=== PATIENT | male | born 1955 | race African-American/Black ===

== ENCOUNTER 2016-10-31 20:20 | Inpatient (IN) | payer OTHER ==
--- NOTE | ~2016-10-31 | HP ---
History And Physical [place] [id number] [facility] [place]. [address] NAME: JAYNE GALLEGOS : 57 STATUS : ADM Mauricio PAT#: [id number] AGE: 61 ADM/REG DATE : 10/31/16 MR#: [id number] REPORT SERV DATE: 11/01/16 DICTATED BY: BANG BOYKIN DATE: 11/01/16 REPORT STATUS : Draft TRANSCRIBED BY: MODL DATE: 11/01/16 DATE OF ADMISSION: 10/31/2016 CHIEF COMPLAINT: This 61-year-old male presenting with abdominal pain, nose bleed, and vomiting. HISTORY OF PRESENT ILLNESS: The patient's history was obtained through careful interview with the patient, coupled with review of [facility] medical records. The patient has chronic pain, particularly in his abdomen, but over last "couple of days" it has progressed. He states in the last two days, he has had 12 episodes of vomiting. He has had some "profuse" nosebleeds on and off for a few days and this may or may not be related to hematemesis that he has also suffered in the last several days. He has also noticed some black stools and some slight diarrhea. There has been no recent antibiotic use. He describes epigastric abdominal discomfort that radiates into his right upper quadrant, aching, sore quality, 7/10 severity. He has chest discomfort, but he always associates it with abdominal pain and vomiting. No fevers or chills. He has had myalgias, aching, lightheadedness. No shortness of breath. No cough. REVIEW OF SYSTEMS: Otherwise, a 14-point review of systems was obtained and was negative. PAST MEDICAL HISTORY: 1. Hepatitis C with chronically elevated liver enzymes. No current treatment. 2. Diabetes. Hemoglobin A1c was 7.7, September 2016. 3. GI bleed with esophagitis seen by Dr. Farrar. 4. Bile leak post cholecystectomy. 5. Pancreatitis. 6. Gastroparesis with positive study in May 2016. 7. Hypertension. PAST SURGICAL HISTORY: Cholecystectomy in 2013 at [facility]. ALLERGIES: MORPHINE. SOCIAL HISTORY: Lives with his brother. He is retired from doing [employer] work. He has a child who lives locally and a child who lives in [place]. He smokes cigarettes. Does not use or drink any alcohol. When he was a young man, he had used some IV drugs and this may be the source of the patient's chronic hepatitis C. History And Physical [address] [place]. [address] NAME: JAYNE GALLEGOS : 57 STATUS : ADM Mauricio PAT#: [id number] AGE: 61 ADM/REG DATE : 10/31/16 MR#: [id number] REPORT SERV DATE: 11/01/16 DICTATED BY: BANG BOYKIN DATE: 11/01/16 REPORT STATUS : Draft TRANSCRIBED BY: DIO DATE: 11/01/16 FAMILY HISTORY: Mother with multiple sclerosis, sister with throat cancer, father unknown to him. CURRENT MEDICATIONS: Unknown at this time, but we have requested that pharmacy attempt to obtain the list for the patient's care. PHYSICAL EXAMINATION: VITAL SIGNS: Temperature 97.6, pulse 116, blood pressure 99/67, respiratory rate 20, and O2 sat 98% on room air. GENERAL: A pleasant, cooperative, male, he is in not any particular distress at the time of my evaluation. HEENT: Pupils are equal, round, and reactive to light. No conjunctival pallor. No scleral icterus. Nares are patent. Oropharynx is clear of obstruction. No intraoral lesions. Moist mucous membranes. NECK: Trachea midline. No thyromegaly. LYMPH NODES: No cervical lymphadenopathy. No supraclavicular lymphadenopathy. No inguinal lymphadenopathy. RESPIRATORY: Clear to auscultation at bases. No wheezes, rales, or rhonchi. Normal respiratory effort. CARDIOVASCULAR: Tachycardic. Regular rhythm. No murmurs, rubs, or gallops. No extremity edema is appreciated. ABDOMEN: Significant epigastric abdominal discomfort. No guarding. No rebound. No specific right upper quadrant tenderness, nondistended abdomen with active bowel sounds. No appreciable hepatosplenomegaly. DERMATOLOGICAL: Warm and dry extremities, no pallor, no cyanosis. PSYCHIATRIC: Normal affect. Good mood. Alert and oriented x3. LABORATORY DATA: Troponin 0.07, lipase 234, INR of 1.1. AST of 152, ALT 113, sodium 132, potassium 3.5, chloride 91, bicarb 29, BUN 24, creatinine 1.75 from baseline creatinine of 0.95, glucose 191, white blood count 8.8, hemoglobin 14, hematocrit 41, platelets 277. Urinalysis negative for infection, but shows 4 hyaline casts. STUDIES: 1. Chest x-ray by my own evaluation shows no acute cardiopulmonary process. 2. EKG by my own evaluation shows sinus tachycardia, right atrial abnormality, left ventricular hypertrophy. 3. CT scan of the abdomen without contrast shows no acute intraabdominal process. ASSESSMENT AND PLAN: 1. Acute kidney injury. Place on IV fluids. Monitor closely. No obstruction by CT scan of the abdomen. 2. Abdominal pain evaluation with vomiting. I believe this could be consistent with gastroparesis, and he did have a positive gastric emptying study in May 2016. We will start on IV Reglan and monitor the patient's response. 3. Hematemesis "chronic." Place on IV proton pump inhibitor drip for now, but it may be from epistaxis alone? We will consult Dr. Farrar, electronics processor, follow up History And Physical [address] [address] NAME: JAYNE GALLEGOS : 57 STATUS : ADM Mauricio PAT#: [id number] AGE: 61 ADM/REG DATE : 10/31/16 MR#: [id number] REPORT SERV DATE: 11/01/16 DICTATED BY: BANG BOYKIN DATE: 11/01/16 REPORT STATUS : Draft TRANSCRIBED BY: DIO DATE: 11/01/16 hemoglobin and hematocrit. 4. Hepatitis C cirrhosis. 5. Diabetes. Hemoglobin A1c is 7.7 in September 2016. Placed on sliding scale insulin for now and monitor .. KPL/MODL Bang Boykin M.D. / [id number] CC: Ihsan Farrar M.D.
--- NOTE | ~2016-10-31 | DS ---
Discharge Summary [facility] [address] [facility] [place]. [address] NAME: JAYNE GALLEGOS : 57 STATUS : DIS Mauricio PAT#: [id number] AGE: 61 ADM/REG DATE : 10/31/16 MR#: [id number] REPORT SERV DATE: 11/03/16 DICTATED BY: JR. DAMIAN WILLIAM JOHN DATE: 11/02/16 REPORT STATUS : Draft TRANSCRIBED BY: DIO DATE: 11/02/16 ADMISSION DATE: 10/31/2016 DISCHARGE DATE: 11/02/2016 DISCHARGE DIAGNOSES: Include: 1. Gastritis. 2. Diminutive esophageal varices. 3. Acute kidney injury. 4. Abdominal pain. 5. Acute on chronic nausea and vomiting. 6. Hematemesis. 7. History of hepatitis C virus. 8. Cirrhosis. 9. Diabetes mellitus type 2. 10.Hypokalemia. 11.Elevated troponin. OPERATIONS, PROCEDURES, AND TREATMENTS: Include: 1. Abdominal CT done 10/31/2016, which showed no acute abdominal pathology with moderately severe degenerative disc disease at L5 through S1 status post cholecystectomy. 2. Chest x-ray done 10/31/2016, which showed no acute abnormality. 3. Echocardiogram done 11/01/2016, which showed normal left ventricular systolic function with ejection fraction of 55% to 60% with mild diastolic dysfunction. Normal right ventricular and systolic size and function. 4. Upper endoscopy done 11/02/[address] Farrar, which showed diminutive esophageal varices with erythematous proximal gastritis. DISCHARGE MEDICATIONS: Include: 1. Levemir insulin 30 units in the morning. 2. Reglan 5 mg t.i.d. p.r.n. 3. Lipitor 20 mg orally daily. 4. Norvasc 10 mg orally daily. 5. Protonix 40 mg orally daily. 6. Percocet 5/325 one tablet every six hours p.r.n., dispensing 8. HOSPITAL COURSE: The patient was a 61-year-old male, who presented to the emergency room on 10/31/2016, with complaint of abdominal plain, nose bleeds, and vomiting. The patient has chronic pain particularly in the abdomen but it had been worse over the past few days. He had multiple episodes of vomiting with some blood and black colored stools. For complete details of the patient's admission history, physical, and presenting data, please see Dr. Carbajal's dictated history and physical. The patient was admitted to the Clinical Decision Unit with acute kidney injury. Initial BUN and creatinine were 24 and 1.8. The patient was IV fluid hydrated, and at discharge, his BUN and creatinine were 16 and 1.05. Discharge Summary [place] [address] [facility]. [address] NAME: JAYNE GALLEGOS : 57 STATUS : DIS Mauricio PAT#: [id number] AGE: 61 ADM/REG DATE : 10/31/16 MR#: [id number] REPORT SERV DATE: 11/03/16 DICTATED BY: JR. DAMIAN WILLIAM JOHN DATE: 11/02/16 REPORT STATUS : Draft TRANSCRIBED BY: DIO DATE: 11/02/16 Regarding the patient's abdominal pain, nausea, vomiting, and hematemesis, the patient has chronic pain since some sort of a surgery in the past with bile leak. He gets pain medicines through his primary care physician, Nel Sancehz. The patient had serial hemoglobin monitoring. His hemoglobin was stable. He was seen in consultation by Dr. Farrar of Gastroenterology and underwent an upper endoscopy with findings of gastritis and diminutive esophageal varices. He will be placed on proton pump inhibitor. Regarding the elevated troponin, the patient had elevated troponin at 0.07. Followup troponins were 0.03 and 0.03. He had no symptoms to indicate acute coronary syndrome and no further workup was done except an echocardiogram, which is detailed above. Regarding the patient's hypokalemia, this was replaced. The patient will be discharged home today 11/02/2016 in good condition. He will be on a soft diet. He will follow up with primary care physician, Nel Sanchez. ACTIVITY: As tolerated. This discharge took 33 minutes for patient encounter, coordination of care, and documentation. WERIKA/DIO Aryan Damian Jr, MD / [id number] CC: Aryan Damian Jr, MD Maureen W Brock, N.PMerline
--- NOTE | ~2016-10-31 | OP ---
Record Of Operation [facility] [address] [address] NAME: JAYNE GALLEGOS : 57 STATUS : ADM Mauricio PAT#: [id number] AGE: 61 ADM/REG DATE : 10/31/16 MR#: [id number] REPORT SERV DATE: 11/02/16 DICTATED BY: MICKEY JULIO DATE: 11/02/16 REPORT STATUS : Draft TRANSCRIBED BY: MODL DATE: 11/02/16 DATE OF PROCEDURE: 11/02/2016 LOCATION: CDU bed 14. PREOPERATIVE DIAGNOSIS: Hematemesis. PROCEDURE: Panendoscopy. POSTOPERATIVE DIAGNOSIS: Proximal gastritis. PREMEDICATION: Diprivan. PROCEDURE IN DETAIL: The scope was inserted without difficulty. There are diminutive esophageal varices at the GE junction with no stigmata of hemorrhage. Retroflexed view shows moderate erythematous proximal gastritis. The stomach, duodenal bulb, and descending duodenum appear normal. There was no active bleeding or old blood present. IMPRESSION: Hematemesis, almost certainly secondary to the gastritis. KIMBERLY Mickey Julio M.D. / [id number] CC: Aryan Damian Jr, MD
--- NOTE | ~2016-10-31 | CN ---
Consultation Report [facility] [address] [place]. [address] NAME: JAYNE GALLEGOS : 57 STATUS : ADM Mauricio PAT#: [id number] AGE: 61 ADM/REG DATE : 10/31/16 MR#: [id number] REPORT SERV DATE: 11/02/16 DICTATED BY: MICKEY JULIO DATE: 11/02/16 REPORT STATUS : Draft TRANSCRIBED BY: MODL DATE: 11/02/16 CONSULTATION DATE OF CONSULTATION: 11/01/2016 LOCATION: U bed 14. I am asked to see this gentleman with hematemesis. This 61-year-old gentleman is known to me. He has several medical problems including hepatitis C and renal failure. Recent complaints have included mild nausea, with hematemesis on one occasion. He denied melena or severe abdominal pain. He denies dysphagia. REVIEW OF SYSTEMS: Otherwise, unremarkable. LISTED MEDICATIONS: Insulin, Reglan, Apresoline, Percocet, and Protonix. PHYSICAL EXAMINATION: HEAD, EYES, EARS, NOSE, THROAT: Normal. NECK: Supple. CHEST: Clear. CARDIAC: Regular rhythm. ABDOMEN: Soft and nontender. Bowel sounds normal. No palpable mass. LABORATORY DATA: Lab work has shown hemoglobin of 12 with normal platelet count and normal BUN and creatinine. IMPRESSION: Hematemesis. PLAN: We will schedule for panendoscopy. Thank you for allowing me to see this gentleman. BRUNO/DIO Mickey Julio M.D. / [id number] Consultation Report [place] [address] [place]. [address] NAME: ROSYJAYNEHARPER CLEMENTS : 57 STATUS : ADM Mauricio PAT#: [id number] AGE: 61 ADM/REG DATE : 10/31/16 MR#: [id number] REPORT SERV DATE: 11/02/16 DICTATED BY: MICKEY JULIO DATE: 11/02/16 REPORT STATUS : Draft TRANSCRIBED BY: MODL DATE: 11/02/16 CC: Aryan Damian Jr, MD
[2016-10-31 16:44] LABS: BASOPHILS 0.3 %; BASOPHILS ABSOLUTE 0.03 10/3/uL (0.0-0.16); EOSINOPHILS 0.2 %; EOSINOPHILS ABSOLUTE 0.02 10/3/uL (0.0-0.53); IMMATURE GRANULOCYTES 0.3 %; IMMATURE GRANULOCYTES ABSOLUTE 0.03 10/3/uL (0.0-0.11); LYMPHOCYTES 44.7 %; LYMPHOCYTES ABSOLUTE 3.94 10/3/uL (0.67-4.30); MEAN CORPUS HGB CONC 34.6 g/dL (32.0-36.0); MEAN CORPUSCULAR HEMOGLOB 28.4 pg (26.0-34.0); MEAN PLATELET VOLUME 9.8 fL (9.2-13.0); MONOCYTES 10.5 %; MONOCYTES ABSOLUTE 0.93 10/3/uL (0.21-1.20); NEUTROPHILS ABSOLUTE 3.87 10/3/uL (2.02-8.40); RBC DISTRIBUTION WIDTH 13.6 % (12.0-16.0)
[2016-10-31 16:45] LABS: ER CBC TAT 0 Hrs 13 Mins; HEMATOCRIT 41.3 % (40.0-51.0); HEMOGLOBIN 14.3 g/dL (13.6-17.8); MANUAL DIFF NO %; MEAN CORPUSCULAR VOLUME 82.1 fL (80-100); PLATELET COUNT 277 10/3/uL (150-400); RED CELL COUNT 5.03 10/6/uL (4.7-6.1); WHITE BLOOD CELLS 8.8 10/3/uL (4.5-10.5)
[2016-10-31 16:49] LABS: ASCORBIC ACID (UR NOT ORDER) NEG (NEG); BILIRUBIN, URINE NEGATIVE (NEG); KETONE, URINE NEGATIVE (NEG); LEUKOCYTE ESTERASE(NOT OR NEG (NEG); NITRITE (URINE) NEG (NEG); WBC (NOT ORDERED) (RFLEX) 2 (0-5)
[2016-10-31 16:53] LABS: ALBUMIN 3.8 G/DL (3.5-5.0); CO2 (CARBON DIOXIDE) 29 MMOL/L (24-34); DIRECT BILIRUBIN 0.5 MG/DL (0.0-0.4); INDIRECT BILIRUBIN(NOT ORDER) 0.6 MG/DL (0.1-0.9); POTASSIUM, SERUM 3.5 MMOL/L (3.5-5.3); SGOT(AST) 152 U/L (5-40); SGPT(ALT) 113 U/L (5-65); TOTAL BILIRUBIN 1.1 MG/DL (0-1.2)
[2016-10-31 16:54] LABS: ALKALINE PHOSPHATASE 115 U/L (45-117); BUN (BLOOD UREA NITROGEN) 24 MG/DL (6-23); CHEST PAIN PROFILE TAT 0 Hrs 22 Mins; CHLORIDE, SERUM 91 MMOL/L (96-112); CREATININE 1.74 MG/DL (0.70-1.30); GFR AFRICAN AMERICAN 48 ML/MIN (>=60); GFR NON AFRICAN AMERICAN 42 ML/MIN (>=60); GLUCOSE, SERUM 191 MG/DL (60-99); SODIUM, SERUM 132 MMOL/L (135-148); TOTAL PROTEIN 8.6 G/DL (6.0-8.5); TROPONIN I 0.07 NG/ML (<0.05)
[2016-10-31 16:56] LABS: INTERNATIONAL NORMAL RATI 1.1 UNITS (-); PARTIAL THROMBO TIME 33.2 SEC (22.5-37.2)
[~2016-10-31 20:20] MED LIST: COZ50 PO; FERROUS SULF325 M1 PO; LEVEMIR SC; NORCO1 TA1 PO; NORV10 PO; PCET PO; REG5 PO; ULTRAM50 PO; ZOFRAN4 PO
[2016-10-31] MEDS ORDERED: LEVEMIR SC (22:59)
[2016-10-31] MEDS ORDERED: LIPITOR20 PO (23:07)
[2016-10-31] MEDS ORDERED: NORV10 PO (23:07)
[2016-10-31] MEDS ORDERED: REG5 PO (23:08)
[2016-11-01 04:43] LABS: HEMOGLOBIN 11.5 g/dL (13.6-17.8); MEAN CORPUS HGB CONC 33.9 g/dL (32.0-36.0); MEAN CORPUSCULAR HEMOGLOB 27.9 pg (26.0-34.0); MEAN CORPUSCULAR VOLUME 82.3 fL (80-100); MEAN PLATELET VOLUME 9.3 fL (9.2-13.0); PLATELET COUNT 202 10/3/uL (150-400); RBC DISTRIBUTION WIDTH 13.7 % (12.0-16.0); RED CELL COUNT 4.12 10/6/uL (4.7-6.1); WHITE BLOOD CELLS 9.5 10/3/uL (4.5-10.5)
[2016-11-01 04:45] LABS: HEMATOCRIT 33.9 % (40.0-51.0); MANUAL DIFF YES %
[2016-11-01 04:45] LABS: A/G RATIO 0.8 (0.7-1.9); ALBUMIN 3.2 G/DL (3.5-5.0); CALCIUM, SERUM 8.4 MG/DL (8.5-10.4); CHLORIDE, SERUM 98 MMOL/L (96-112); CO2 (CARBON DIOXIDE) 27 MMOL/L (24-34); CREATININE 1.79 MG/DL (0.70-1.30); GFR AFRICAN AMERICAN 47 ML/MIN (>=60); GFR NON AFRICAN AMERICAN 40 ML/MIN (>=60); POTASSIUM, SERUM 3.2 MMOL/L (3.5-5.3); SGOT(AST) 134 U/L (5-40); SGPT(ALT) 97 U/L (5-65); SODIUM, SERUM 136 MMOL/L (135-148); TOTAL BILIRUBIN 1.4 MG/DL (0-1.2); TOTAL PROTEIN 7.2 G/DL (6.0-8.5); ULTRASENSITIVE TSH 0.862 MCIU/ML (0.358-3.740)
[2016-11-01 04:52] LABS: ALKALINE PHOSPHATASE 96 U/L (45-117); BUN (BLOOD UREA NITROGEN) 28 MG/DL (6-23); GLUCOSE, SERUM 143 MG/DL (60-99); TROPONIN I 0.08 NG/ML (<0.05)
[2016-11-01 05:01] LABS: BASOPHILS 2 %; BASOPHILS ABSOLUTE (CALC) 0.19 10/3/uL (0.0-0.16); EOSINOPHILS 2 %; EOSINOPHILS ABSOLUTE (CALC) 0.19 10/3/uL (0.0-0.53); LYMPHOCYTES 48 %; LYMPHOCYTES ABSOLUTE (CALC) 4.56 10/3/uL (0.67-4.30); MONOCYTES 8 %; MONOCYTES ABSOLUTE (CALC) 0.76 10/3/uL (0.21-1.20); SEGMENTED NEUTROPHIL (0) 40 %; TOTAL NUCLEATED CELLS 100
[2016-11-01 05:02] LABS: PLATELET ESTIMATE ADQ (ADEQUATE); VACUOLATED NEUTROPHILES OCC
[2016-11-01 05:03] LABS: HELMET CELLS FEW (3-10/OIF)
[2016-11-01 06:48] LABS: INTERNATIONAL NORMAL RATI 1.1 UNITS (-); PARTIAL THROMBO TIME 23.9 SEC (22.5-37.2)
[2016-11-01 12:52] LABS: HEMATOCRIT 32.3 % (40.0-51.0); HEMOGLOBIN 11.2 g/dL (13.6-17.8)
[2016-11-01 22:22] LABS: HEMATOCRIT 30.1 % (40.0-51.0); HEMOGLOBIN 10.3 g/dL (13.6-17.8)
[2016-11-02 05:22] LABS: HEMATOCRIT 29.3 % (40.0-51.0); HEMOGLOBIN 9.8 g/dL (13.6-17.8)
[2016-11-02 05:57] LABS: CALCIUM, SERUM 7.9 MG/DL (8.5-10.4); CHLORIDE, SERUM 108 MMOL/L (96-112); CO2 (CARBON DIOXIDE) 26 MMOL/L (24-34); GFR AFRICAN AMERICAN 89 ML/MIN (>=60); GFR NON AFRICAN AMERICAN 77 ML/MIN (>=60); GLUCOSE, SERUM 136 MG/DL (60-99)
[2016-11-02 06:14] LABS: BUN (BLOOD UREA NITROGEN) 16 MG/DL (6-23); CREATININE 1.05 MG/DL (0.70-1.30); SODIUM, SERUM 143 MMOL/L (135-148)
[2016-11-02] MEDS ORDERED: PROTONIX PO (15:25)
[2016-11-02] MEDS ORDERED: PCET PO (15:25)
[2017-05-08] MEDS ORDERED: PR25 PO (10:01)
[2017-05-08] MEDS ORDERED: LEVEMIR SC (10:02)
[2017-05-08] MEDS ORDERED: ULTRAM50 PO (10:02)
[2017-05-12] MEDS ORDERED: NORV5 PO (09:26)
[2017-05-12] MEDS ORDERED: COREG12 PO (09:27)
[2017-05-12] MEDS ORDERED: PROTONIX PO (09:29)
[2017-05-12] MEDS ORDERED: NORCO1 TA1 PO (09:30)
== END 2016-11-02 17:24 | disposition home or self-care (01) | DRG 378 ==
LOC: ER 20:20 → CDU1 22:06 → 7NO 11-01 20:58
PROVIDERS: Emergency Medicine; Internal Medicine; Internal Medicine Gastroenterology
PROC: 0DJ08ZZ Inspection of Upper Intestinal Tract, Via Natural or Artificial Opening Endoscopic (ICD-10-PCS; principal; 2016-11-02 09:00)
DX: K92.0 Hematemesis (principal); N17.9 Acute kidney failure, unspecified; K74.60 Unspecified cirrhosis of liver; K29.70 Gastritis, unspecified, without bleeding; I85.10 Secondary esophageal varices without bleeding; B18.2 Chronic viral hepatitis C; E11.9 Type 2 diabetes mellitus without complications; E87.6 Hypokalemia; M51.37 Other intervertebral disc degeneration, lumbosacral region; Z90.49 Acquired absence of other specified parts of digestive tract; Z79.4 Long term (current) use of insulin
CPT/HCPCS: 71020; 74160; 80048; 80053; 80076; 81001; 82962; 83605; 83690; 83735; 83880; 84443; 84484; 85014; 85018; 85025; 85610; 85730; 93005; 93306; 96361; 96374; 96375; 99291; A9270-GY; C9113; J0360; J1170; J2405; J2550; J2765; Q9967

== ENCOUNTER 2016-11-29 20:44 | Inpatient (IN) | payer OTHER ==
--- NOTE | ~2016-11-29 | CN ---
Consultation Report [facility] [address] [place]. [address] NAME: JAYNE GALLEGOS : 57 STATUS : ADM Mauricio PAT#: [id number] AGE: 61 ADM/REG DATE : 11/29/16 MR#: [id number] REPORT SERV DATE: 12/01/16 DICTATED BY: MICKEY JULIO DATE: 12/01/16 REPORT STATUS : Draft TRANSCRIBED BY: DIO DATE: 12/01/16 CONSULTATION DATE OF CONSULTATION: 12/01/2016 I am asked to see this gentleman with upper GI symptoms. HISTORY OF PRESENT ILLNESS: This 61-year-old gentleman is known to me. Dominant medical problem is diabetes. He has had intermittent difficulty with nausea, vomiting, and abdominal pain over the last year or so. Workup has been extensive including endoscopy. Recently, he developed hematemesis, panendoscopy within the last week or two was unremarkable. Currently, pain seems to be diminished. He is increasing his hunger. He denies melena. REVIEW OF SYSTEMS: Otherwise negative. PHYSICAL EXAMINATION: CHEST: Clear. CARDIAC: Regular rhythm. ABDOMEN: Soft and nontender. Bowel sounds normal. No palpable mass. IMPRESSION: 1. Nausea, vomiting, and epigastric pain. 2. Hematemesis, not hemodynamically significant. PLAN: We will follow with you. Panendoscopy is probably not necessary at this point. BRUNO/DIO Mickey Julio M.D. / [id number] CC: Hemant Mireles MD
--- NOTE | ~2016-11-29 | HP ---
History And Physical [place] [address] [facility] [place]. [address] NAME: JAYNE ALVA : 57 STATUS : ADM Mauricio PAT#: [id number] AGE: 61 ADM/REG DATE : 11/29/16 MR#: [id number] REPORT SERV DATE: 11/29/16 DICTATED BY: AIDE ROBLEDO DATE: 11/29/16 REPORT STATUS : Draft TRANSCRIBED BY: MODL DATE: 11/29/16 DATE OF ADMISSION: 11/29/2016 POINT OF ENTRY: [facility] Emergency Department. PRIMARY FIREBRICK LAYER: Dr. Farrar. CHIEF COMPLAINT: Abdominal pain, nausea, vomiting, and hematemesis. HISTORY OF PRESENT ILLNESS: Mr. Alva is a 61-year-old gentleman with history of chronic abdominal pain, on chronic narcotics as well as hepatitis C with concern for cirrhosis and esophageal varices, who presents to the emergency department today with two-day history of diffuse abdominal pain with associated nausea and vomiting as well as blood in his vomit. The patient has been admitted to the Hospitalist Service, both in September as well as in October for similar complaints of abdominal pain, nausea, vomiting, and hematemesis. He has undergone panendoscopy by Dr. Farrar on both occasions with finding of esophagitis in September as well as gastritis in October. EGD has also demonstrated some very small- appearing esophageal varices at that time, but without any evidence of recent or active bleeding. The patient was discharged on Protonix, Reglan as well as some pain medications. The patient states he has been out of his pain medications for the past week. Being about two days ago, he started to develop diffuse abdominal pain with associated nausea, vomiting as well as blood in his vomit. He denies any other symptoms such as fevers, night sweats, chills, chest pain, shortness of breath, diarrhea, constipation, dysuria, melena, or hematochezia. REVIEW OF SYSTEMS: Comprehensive review of system otherwise negative unless listed in history of present illness. Initial evaluation in the emergency department notable for blood pressure that is very high with systolic of 200/100. His lactic acid level was elevated at 3.5; however, his white count is normal. His H and H are also within recent baseline. Labs otherwise unremarkable, except for some chronic transaminitis, which is at baseline as well as some hyperglycemia. The patient was started on a Protonix drip as well as some IV fluids and admitted to the hospitalist service for further evaluation and management. PREVIOUS MEDICAL HISTORY: 1. Chronic abdominal pain, on chronic narcotics. 2. Chronic hepatitis C with associated esophageal varices. 3. Insulin-dependent diabetes mellitus type 2. 4. Hypertension. 5. Prior admissions for hematemesis and found to have evidence of gastritis and esophagitis. 6. Gastroparesis. History And Physical [address] [address] NAME: JAYNE ALVA : 57 STATUS : ADM Mauricio PAT#: [id number] AGE: 61 ADM/REG DATE : 11/29/16 MR#: [id number] REPORT SERV DATE: 11/29/16 DICTATED BY: AIDE ROBLEDO DATE: 11/29/16 REPORT STATUS : Draft TRANSCRIBED BY: DIO DATE: 11/29/16 7. Prior history of pancreatitis. SURGICAL HISTORY: Cholecystectomy. ALLERGIES: MORPHINE. HOME MEDICATIONS: 1. Norvasc 10 mg daily. 2. Atorvastatin 20 mg q.h.s. 3. Stafford 5-325 one to two tablets q.4 hours p.r.n. 4. Insulin Levemir 30 units q.a.m. 5. Reglan 5 mg t.i.d. p.r.n. 6. Tramadol 50 mg b.i.d. SOCIAL HISTORY: He does still smoke cigarettes. Denies any alcohol. Denies illicits. FAMILY MEDICAL HISTORY: Mother with multiple sclerosis. Father's history is unknown. Sibling with history of throat cancer. LABORATORIES AND IMAGIN. White count is 5.5, hemoglobin is 12.2, hematocrit is 35.9, platelet count is 200. INR is pending. 2. Sodium is 137, potassium 3.1, chloride 96, carbon dioxide 25, BUN 6, creatinine 1.16, glucose is 269, calcium is 9.2, protein is 8.4, albumin is 2.8, bilirubin is 1.7, ALT is 94, AST 98, alkaline phosphatase is 182. 3. Lipase is 162. 4. Lactic acid is 3.5. 5. Urinalysis: Specific gravity is 1.032, positive for protein, but no evidence of any infection, no evidence of any ketones on his urinalysis. PHYSICAL EXAMINATION: VITAL SIGNS: Temperature is 98.6 degrees Fahrenheit, pulse is 109, respirations 16, saturating 100% on room air, blood pressure is 155/101; on recheck it is now 190/101. GENERAL: The patient is awake, alert. He is a well-developed, well-nourished, - Somali male in some visible distress when I walk in the room, however, not visualized or documented by nursing. HEENT: Atraumatic and normocephalic. Moist mucous membranes. Pupils are equal, round, reactive to light and accommodation. Extraocular movements intact. No scleral icterus. NECK: No jugular venous distention. No carotid bruits. CARDIAC: Regular rate and rhythm. No murmurs or gallops. Normal S1 and S2. LUNGS: Clear to auscultation bilaterally. No wheezes, rhonchi, or crackles. ABDOMEN: Soft. Diffusely tender to palpation in all quadrants. No rebound, guarding, or rigidity. EXTREMITIES: Warm and well perfused. No cyanosis, clubbing, or edema. SKIN: Warm and dry. PSYCH: Affect appropriate. NEURO: Alert and oriented x3. Cranial nerves II through XII grossly intact. Speech is History And Physical [address] [address] NAME: JAYNE ALVA : 57 STATUS : ADM Mauricio PAT#: [id number] AGE: 61 ADM/REG DATE : 11/29/16 MR#: [id number] REPORT SERV DATE: 11/29/16 DICTATED BY: AIDE ROBLEDO DATE: 11/29/16 REPORT STATUS : Draft TRANSCRIBED BY: MODPrimitivo DATE: 11/29/16 normal. Gait not assessed. ASSESSMENT: Mr. Alva is a 61-year-old gentleman with two recent admissions in the last two months for nausea, vomiting, and hematemesis with endoscopic evaluation, found to have gastritis and esophagitis as well as nonbleeding esophageal varices, who presents with similar symptoms and complaints. PROBLEM LIST: 1. Hematemesis. 2. Hypertensive urgency. 3. Abdominal pain. 4. Elevated lactic acid level. 5. History of gastritis and esophagitis. 6. History of esophageal varices. 7. Insulin-dependent diabetes mellitus type 2 with hyperglycemia. PLAN: 1. Hematemesis. Given the patient's previous admissions as well as evidence of gastritis, esophagitis as well as esophageal varices, we will place the patient on Protonix drip as well as an octreotide drip. Check hemoglobin and hematocrit q.6 hours x24 hours. We will consult the patient's primary purchasing supervisor, Dr. Farrar for assistance. 2. Hypertensive urgency, likely secondary to medication noncompliance as well as distress from his report of abdominal pain, nausea, and vomiting. Place the patient on hydralazine IV p.r.n. as well as some low-dose for pain control. 3. Abdominal pain with elevated lactic acid level. Unclear etiology at this time. The patient does appear to have some chronic liver disease from his chronic hepatitis C and chronic transaminase elevation, but did not have an elevation last time he was admitted. I do not appreciate any active evidence of infection at this time; however, we will check a stat CT scan of the abdomen and pelvis given the patient's abdominal pain and lactic acid level. 4. Insulin-dependent diabetes mellitus type 2 with hyperglycemia. Continue the patient's home Levemir, level 2 insulin sliding scale. 5. History of esophageal varices. There has been no recent document evidence of active or recent stigmata bleeding from his varices, but we will place the patient on octreotide drip as well as a Protonix drip. 6. DVT prophylaxis. TEDs and SCDs given bleeding. CODE STATUS: The patient wished to be full code. TANYA/DIO Aide Robledo MD / [id number] History And Physical [address] [address] NAME: JAYNE ALVA : 57 STATUS : ADM Mauricio PAT#: [id number] AGE: 61 ADM/REG DATE : 11/29/16 MR#: [id number] REPORT SERV DATE: 11/29/16 DICTATED BY: AIDE ROBLEDO DATE: 11/29/16 REPORT STATUS : Draft TRANSCRIBED BY: DIO DATE: 11/29/16 CC: Nel Sanchez N.P.
--- NOTE | ~2016-11-29 | DS ---
Discharge Summary [place] [address] [place]. [address] NAME: JAYNE GALLEGOS : 57 STATUS : DIS IN PAT#: [id number] AGE: 61 ADM/REG DATE : 11/29/16 MR#: [id number] REPORT SERV DATE: 12/04/16 DICTATED BY: DATE: REPORT STATUS : Draft TRANSCRIBED BY: MODL DATE: 12/03/16 ADMISSION DATE: 11/29/2016 DISCHARGE DATE: 12/03/2016 DISCHARGE DIAGNOSES: 1. Hematemesis. 2. Hypertension. 3. History of esophageal varices. 4. Insulin-dependent diabetes mellitus. 5. Chronic hepatitis C. 6. Abdominal pain. 7. Constipation. CONSULTING PHYSICIANS: Include Dr. Ihsan Farrar. DISCHARGE MEDICATIONS: Include Norvasc 10 mg p.o. daily, Lipitor 20 mg p.o. at bedtime, Levemir 30 units subcu daily, Reglan 5 mg p.o. t.i.d. p.r.n. for nausea, Lindsay 5/325 mg one to two tablets p.o. q.4 hours p.r.n. for pain, tramadol 50 mg p.o. b.i.d. p.r.n. for pain, Protonix 40 mg p.o. daily. IMAGING: Includes CT of the abdomen and pelvis without contrast. This demonstrated no acute abdominal or pelvic pathology. For full H and P, please refer to Dr. Aoln Sams's dictation on 11/29/2016. HOSPITAL COURSE/PROBLEM LIST: 1. Hematemesis. The patient was initially placed on a Protonix drip as well as a Sandostatin drip for several days. His hematemesis resolved on his own without endoscopy. His hemoglobin and hematocrit have remained stable, the last being 9.8 and 29.5 this morning. The Sandostatin and Protonix drips were discontinued several days ago. Continue Protonix IV 40 mg b.i.d., and I will discharge the patient with 40 mg p.o. daily. The patient is established with Dr. Farrar as an outpatient, and he will follow up with him as needed. 2. Hypertension. The patient's blood pressure has remained in the 130s to 140s systolic in the last 24 hours. I will continue his home antihypertensives as mentioned above. 3. Insulin-dependent diabetes mellitus. We will continue the patient's Levemir. The patient's blood glucose has been 150 to 200 during his hospital stay. 4. Abdominal pain, this has resolved. 5. Constipation. The patient has not had a bowel movement in four days. Today, he received MiraLAX p.o. as well as a Dulcolax suppository. He did have a bowel movement and is feeling much better. He is requesting to go home. He is hemodynamically stable. Blood pressure 134/79, heart rate 89, respirations 18, on room air O2 saturation 99%, temperature 97.4. The patient has been afebrile. Again, he will follow up with Dr. Farrar for further GI issues. Discharge Summary [address] [address] NAME: JAYNE GALLEGOS : 57 STATUS : DIS IN PAT#: [id number] AGE: 61 ADM/REG DATE : 11/29/16 MR#: [id number] REPORT SERV DATE: 12/04/16 DICTATED BY: DATE: REPORT STATUS : Draft TRANSCRIBED BY: DIO DATE: 12/03/16 CLR/DIO Ced Patiño NP / [id number] CC: MD Ihsan Dinh M.D.
[2016-11-29 17:57] LABS: BASOPHILS 0.7 %; BASOPHILS ABSOLUTE 0.04 10/3/uL (0.0-0.16); EOSINOPHILS 0.7 %; EOSINOPHILS ABSOLUTE 0.04 10/3/uL (0.0-0.53); IMMATURE GRANULOCYTES 0.2 %; IMMATURE GRANULOCYTES ABSOLUTE 0.01 10/3/uL (0.0-0.11); LYMPHOCYTES 41.2 %; LYMPHOCYTES ABSOLUTE 2.26 10/3/uL (0.67-4.30); MEAN CORPUSCULAR HEMOGLOB 27.7 pg (26.0-34.0); MEAN CORPUSCULAR VOLUME 81.4 fL (80-100); MEAN PLATELET VOLUME 10.1 fL (9.2-13.0); MONOCYTES 8.4 %; MONOCYTES ABSOLUTE 0.46 10/3/uL (0.21-1.20); NEUTROPHILS 48.8 %; NEUTROPHILS ABSOLUTE 2.68 10/3/uL (2.02-8.40); PLATELET COUNT 200 10/3/uL (150-400); RBC DISTRIBUTION WIDTH 14.5 % (12.0-16.0); RED CELL COUNT 4.41 10/6/uL (4.7-6.1)
[2016-11-29 18:00] LABS: ER CBC TAT 0 Hrs 16 Mins; HEMATOCRIT 35.9 % (40.0-51.0); HEMOGLOBIN 12.2 g/dL (13.6-17.8); MANUAL DIFF NO %; WHITE BLOOD CELLS 5.5 10/3/uL (4.5-10.5)
[2016-11-29 18:07] LABS: ASCORBIC ACID (UR NOT ORDER) NEG (NEG); BILIRUBIN, URINE NEGATIVE (NEG); ER URINALYSIS TAT 0 Hrs 23 Mins; KETONE, URINE NEGATIVE (NEG); LEUKOCYTE ESTERASE(NOT OR NEG (NEG); NITRITE (URINE) NEG (NEG); WBC (NOT ORDERED) (RFLEX) < 1 (0-5)
[2016-11-29 18:14] LABS: A/G RATIO 0.8 (0.7-1.9); ALBUMIN 3.8 G/DL (3.5-5.0); CO2 (CARBON DIOXIDE) 25 MMOL/L (24-34); CREATININE 1.16 MG/DL (0.70-1.30); GFR AFRICAN AMERICAN 79 ML/MIN (>=60); GFR NON AFRICAN AMERICAN 68 ML/MIN (>=60); GLOBULIN 4.6 G/DL (2.5-4.1); SGOT(AST) 98 U/L (5-40); SGPT(ALT) 94 U/L (5-65); SODIUM, SERUM 137 MMOL/L (135-148); TOTAL BILIRUBIN 1.7 MG/DL (0-1.2); TOTAL PROTEIN 8.4 G/DL (6.0-8.5)
[2016-11-29 18:17] LABS: ALKALINE PHOSPHATASE 182 U/L (45-117); BUN (BLOOD UREA NITROGEN) 6 MG/DL (6-23); CALCIUM, SERUM 9.2 MG/DL (8.5-10.4); CHLORIDE, SERUM 96 MMOL/L (96-112); GLUCOSE, SERUM 269 MG/DL (60-99); POTASSIUM, SERUM 3.1 MMOL/L (3.5-5.3)
[~2016-11-29 20:44] MED LIST changes: +LIPITOR20 PO; +PROTONIX PO
[2016-11-29] MEDS ORDERED: NORCO1 TA1 PO (22:25)
[2016-11-29] MEDS ORDERED: ULTRAM50 PO (22:25)
[2016-11-30 00:04] LABS: INTERNATIONAL NORMAL RATI 1.2 UNITS (-); PARTIAL THROMBO TIME 33.5 SEC (22.5-37.2); PROTIME (NOT ORD) 15.5 SEC (12.0-14.5)
[2016-11-30 01:30] LABS: HEMOGLOBIN 11.6 g/dL (13.6-17.8)
[2016-11-30 05:00] LABS: HEMATOCRIT 32.6 % (40.0-51.0); HEMOGLOBIN 11.2 g/dL (13.6-17.8)
[2016-11-30 09:22] LABS: BUN (BLOOD UREA NITROGEN) 8 MG/DL (6-23); CALCIUM, SERUM 8.9 MG/DL (8.5-10.4); CHLORIDE, SERUM 100 MMOL/L (96-112); CO2 (CARBON DIOXIDE) 24 MMOL/L (24-34); CREATININE 0.92 MG/DL (0.70-1.30); GFR AFRICAN AMERICAN 104 ML/MIN (>=60); GFR NON AFRICAN AMERICAN 90 ML/MIN (>=60); GLUCOSE, SERUM 274 MG/DL (60-99); POTASSIUM, SERUM 3.7 MMOL/L (3.5-5.3); SODIUM, SERUM 138 MMOL/L (135-148)
[2016-11-30 15:26] LABS: HEMOGLOBIN 9.9 g/dL (13.6-17.8)
[2016-11-30 15:29] LABS: HEMATOCRIT 29.1 % (40.0-51.0)
[2016-11-30 17:43] LABS: HEMATOCRIT 30.5 % (40.0-51.0); HEMOGLOBIN 10.3 g/dL (13.6-17.8)
[2016-12-01 07:10] LABS: BASOPHILS 0.5 %; BASOPHILS ABSOLUTE 0.04 10/3/uL (0.0-0.16); EOSINOPHILS 0.7 %; EOSINOPHILS ABSOLUTE 0.06 10/3/uL (0.0-0.53); HEMATOCRIT 30.7 % (40.0-51.0); HEMOGLOBIN 10.3 g/dL (13.6-17.8); IMMATURE GRANULOCYTES 0.1 %; IMMATURE GRANULOCYTES ABSOLUTE 0.01 10/3/uL (0.0-0.11); LYMPHOCYTES 51.3 %; MANUAL DIFF NO %; MEAN CORPUS HGB CONC 33.6 g/dL (32.0-36.0); MEAN CORPUSCULAR HEMOGLOB 27.9 pg (26.0-34.0); MEAN CORPUSCULAR VOLUME 83.2 fL (80-100); MEAN PLATELET VOLUME 9.5 fL (9.2-13.0); MONOCYTES 8.8 %; MONOCYTES ABSOLUTE 0.74 10/3/uL (0.21-1.20); NEUTROPHILS 38.6 %; NEUTROPHILS ABSOLUTE 3.24 10/3/uL (2.02-8.40); PLATELET COUNT 191 10/3/uL (150-400); RBC DISTRIBUTION WIDTH 14.7 % (12.0-16.0); RED CELL COUNT 3.69 10/6/uL (4.7-6.1); WHITE BLOOD CELLS 8.4 10/3/uL (4.5-10.5)
[2016-12-01 07:30] LABS: A/G RATIO 0.8 (0.7-1.9); ALBUMIN 3.2 G/DL (3.5-5.0); CALCIUM, SERUM 8.4 MG/DL (8.5-10.4); CHLORIDE, SERUM 104 MMOL/L (96-112); CO2 (CARBON DIOXIDE) 24 MMOL/L (24-34); CREATININE 1.07 MG/DL (0.70-1.30); GFR AFRICAN AMERICAN 87 ML/MIN (>=60); GFR NON AFRICAN AMERICAN 75 ML/MIN (>=60); GLOBULIN 3.8 G/DL (2.5-4.1); POTASSIUM, SERUM 3.2 MMOL/L (3.5-5.3); SGOT(AST) 71 U/L (5-40); SGPT(ALT) 70 U/L (5-65); SODIUM, SERUM 141 MMOL/L (135-148); TOTAL BILIRUBIN 1.6 MG/DL (0-1.2)
[2016-12-01 07:31] LABS: ALKALINE PHOSPHATASE 120 U/L (45-117); BUN (BLOOD UREA NITROGEN) 13 MG/DL (6-23); GLUCOSE, SERUM 83 MG/DL (60-99)
[2016-12-02 05:11] LABS: BASOPHILS 0.6 %; BASOPHILS ABSOLUTE 0.03 10/3/uL (0.0-0.16); EOSINOPHILS 1.3 %; EOSINOPHILS ABSOLUTE 0.07 10/3/uL (0.0-0.53); HEMATOCRIT 29.2 % (40.0-51.0); HEMOGLOBIN 9.6 g/dL (13.6-17.8); IMMATURE GRANULOCYTES 0.4 %; IMMATURE GRANULOCYTES ABSOLUTE 0.02 10/3/uL (0.0-0.11); LYMPHOCYTES ABSOLUTE 2.52 10/3/uL (0.67-4.30); MEAN CORPUS HGB CONC 32.9 g/dL (32.0-36.0); MEAN CORPUSCULAR VOLUME 85.1 fL (80-100); MEAN PLATELET VOLUME 10.3 fL (9.2-13.0); MONOCYTES 8.6 %; MONOCYTES ABSOLUTE 0.45 10/3/uL (0.21-1.20); NEUTROPHILS 41.1 %; NEUTROPHILS ABSOLUTE 2.16 10/3/uL (2.02-8.40); PLATELET COUNT 177 10/3/uL (150-400); RBC DISTRIBUTION WIDTH 14.9 % (12.0-16.0); RED CELL COUNT 3.43 10/6/uL (4.7-6.1); WHITE BLOOD CELLS 5.3 10/3/uL (4.5-10.5)
[2016-12-02 05:14] LABS: MANUAL DIFF NO %
[2016-12-02 05:31] LABS: BUN (BLOOD UREA NITROGEN) 13 MG/DL (6-23); CALCIUM, SERUM 8.5 MG/DL (8.5-10.4); CHLORIDE, SERUM 106 MMOL/L (96-112); CO2 (CARBON DIOXIDE) 26 MMOL/L (24-34); CREATININE 1.03 MG/DL (0.70-1.30); GFR AFRICAN AMERICAN 91 ML/MIN (>=60); GFR NON AFRICAN AMERICAN 79 ML/MIN (>=60); SODIUM, SERUM 141 MMOL/L (135-148)
[2016-12-02 05:34] LABS: GLUCOSE, SERUM 215 MG/DL (60-99); POTASSIUM, SERUM 4.5 MMOL/L (3.5-5.3)
[2016-12-03 05:39] LABS: BASOPHILS 0.4 %; BASOPHILS ABSOLUTE 0.02 10/3/uL (0.0-0.16); EOSINOPHILS 2.5 %; EOSINOPHILS ABSOLUTE 0.12 10/3/uL (0.0-0.53); HEMATOCRIT 29.5 % (40.0-51.0); HEMOGLOBIN 9.8 g/dL (13.6-17.8); IMMATURE GRANULOCYTES 0.2 %; IMMATURE GRANULOCYTES ABSOLUTE 0.01 10/3/uL (0.0-0.11); LYMPHOCYTES 43.8 %; LYMPHOCYTES ABSOLUTE 2.14 10/3/uL (0.67-4.30); MEAN CORPUS HGB CONC 33.2 g/dL (32.0-36.0); MEAN CORPUSCULAR HEMOGLOB 27.7 pg (26.0-34.0); MEAN CORPUSCULAR VOLUME 83.3 fL (80-100); MEAN PLATELET VOLUME 10.2 fL (9.2-13.0); MONOCYTES 9.8 %; MONOCYTES ABSOLUTE 0.48 10/3/uL (0.21-1.20); NEUTROPHILS 43.3 %; NEUTROPHILS ABSOLUTE 2.12 10/3/uL (2.02-8.40); PLATELET COUNT 163 10/3/uL (150-400); RBC DISTRIBUTION WIDTH 14.4 % (12.0-16.0); RED CELL COUNT 3.54 10/6/uL (4.7-6.1); WHITE BLOOD CELLS 4.9 10/3/uL (4.5-10.5)
[2016-12-03 05:44] LABS: MANUAL DIFF NO %
[2016-12-03 05:53] LABS: BUN (BLOOD UREA NITROGEN) 14 MG/DL (6-23); CALCIUM, SERUM 8.3 MG/DL (8.5-10.4); CHLORIDE, SERUM 103 MMOL/L (96-112); CO2 (CARBON DIOXIDE) 30 MMOL/L (24-34); CREATININE 0.86 MG/DL (0.70-1.30); GFR AFRICAN AMERICAN 109 ML/MIN (>=60); GFR NON AFRICAN AMERICAN 94 ML/MIN (>=60); POTASSIUM, SERUM 3.9 MMOL/L (3.5-5.3); SODIUM, SERUM 141 MMOL/L (135-148)
[2016-12-03 05:58] LABS: GLUCOSE, SERUM 160 MG/DL (60-99)
[2016-12-03] MEDS ORDERED: PROTONIX PO (16:34)
[2017-05-08] MEDS ORDERED: PR25 PO (10:01)
[2017-05-08] MEDS ORDERED: ULTRAM50 PO (10:02)
[2017-05-08] MEDS ORDERED: LEVEMIR SC (10:02)
[2017-05-12] MEDS ORDERED: NORV5 PO (09:26)
[2017-05-12] MEDS ORDERED: COREG12 PO (09:27)
[2017-05-12] MEDS ORDERED: PROTONIX PO (09:29)
[2017-05-12] MEDS ORDERED: NORCO1 TA1 PO (09:30)
== END 2016-12-03 17:48 | disposition home or self-care (01) | DRG 379 ==
LOC: ER 20:44 → 7NO 22:53
PROVIDERS: Emergency Medicine; Internal Medicine; Nurse Practitioner Acute Care
DX: K92.0 Hematemesis (principal); K31.84 Gastroparesis; E11.43 Type 2 diabetes mellitus with diabetic autonomic (poly)neuropathy; E11.65 Type 2 diabetes mellitus with hyperglycemia; I10 Essential (primary) hypertension; I85.00 Esophageal varices without bleeding; K59.00 Constipation, unspecified; B18.2 Chronic viral hepatitis C; I85.10 Secondary esophageal varices without bleeding; K29.70 Gastritis, unspecified, without bleeding; K20.9 Esophagitis, unspecified; M51.37 Other intervertebral disc degeneration, lumbosacral region; F17.210 Nicotine dependence, cigarettes, uncomplicated; I16.0 Hypertensive urgency; Z79.4 Long term (current) use of insulin; Z88.5 Allergy status to narcotic agent; Z91.14 Patient's other noncompliance with medication regimen; Z90.49 Acquired absence of other specified parts of digestive tract
CPT/HCPCS: 36415; 74177; 80048; 80053; 81001; 82962; 83605; 83690; 84132; 85014; 85018; 85025; 85610; 85730; 86850; 86900; 86901; 96374; 96375; 99285; A9270-GY; C9113; J0360; J1170; J2405; J2550; J2765; Q9967

== ENCOUNTER 2017-02-15 10:25 | Emergency (ER) | payer OTHER ==
[2017-02-15 11:21] LABS: BASOPHILS ABSOLUTE 0.05 10/3/uL (0.0-0.16); EOSINOPHILS 2.4 %; EOSINOPHILS ABSOLUTE 0.12 10/3/uL (0.0-0.53); ER CBC TAT 0 Hrs 13 Mins; HEMOGLOBIN 11.4 g/dL (13.6-17.8); IMMATURE GRANULOCYTES 0.2 %; IMMATURE GRANULOCYTES ABSOLUTE 0.01 10/3/uL (0.0-0.11); LYMPHOCYTES 42.4 %; MEAN CORPUS HGB CONC 32.9 g/dL (32.0-36.0); MEAN CORPUSCULAR HEMOGLOB 25.7 pg (26.0-34.0); MEAN PLATELET VOLUME 9.8 fL (9.2-13.0); MONOCYTES 10.1 %; NEUTROPHILS 43.9 %; NEUTROPHILS ABSOLUTE 2.17 10/3/uL (2.02-8.40); PLATELET COUNT 183 10/3/uL (150-400); RBC DISTRIBUTION WIDTH 15.5 % (12.0-16.0)
[2017-02-15 11:22] LABS: HEMATOCRIT 34.7 % (40.0-51.0); MANUAL DIFF NO %; MEAN CORPUSCULAR VOLUME 78.3 fL (80-100); RED CELL COUNT 4.43 10/6/uL (4.7-6.1)
[2017-02-15 11:29] LABS: INTERNATIONAL NORMAL RATI 1.2 UNITS (-); PARTIAL THROMBO TIME 35.1 SEC (22.5-37.2); PROTIME (NOT ORD) 14.8 SEC (12.0-14.5)
[2017-02-15 11:34] LABS: A/G RATIO 0.9 (0.7-1.9); ALBUMIN 3.8 G/DL (3.5-5.0); ALKALINE PHOSPHATASE 227 U/L (45-117); BUN (BLOOD UREA NITROGEN) 7 MG/DL (6-23); CALCIUM, SERUM 9.4 MG/DL (8.5-10.4); CHLORIDE, SERUM 102 MMOL/L (96-112); CO2 (CARBON DIOXIDE) 28 MMOL/L (24-34); CREATININE 0.97 MG/DL (0.70-1.30); GFR AFRICAN AMERICAN 98 ML/MIN (>=60); GFR NON AFRICAN AMERICAN 85 ML/MIN (>=60); GLOBULIN 4.3 G/DL (2.5-4.1); GLUCOSE, SERUM 263 MG/DL (60-99); POTASSIUM, SERUM 3.8 MMOL/L (3.5-5.3); SGOT(AST) 115 U/L (5-40); SGPT(ALT) 106 U/L (5-65); SODIUM, SERUM 139 MMOL/L (135-148); TOTAL BILIRUBIN 0.8 MG/DL (0-1.2); TOTAL PROTEIN 8.1 G/DL (6.0-8.5)
[2017-02-15 13:38] LABS: ASCORBIC ACID (UR NOT ORDER) NEG (NEG); BILIRUBIN, URINE NEGATIVE (NEG); ER URINALYSIS TAT 0 Hrs 07 Mins; KETONE, URINE NEGATIVE (NEG); LEUKOCYTE ESTERASE(NOT OR NEG (NEG); NITRITE (URINE) NEG (NEG); WBC (NOT ORDERED) (RFLEX) 1 (0-5)
[2017-05-08] MEDS ORDERED: PR25 PO (10:01)
[2017-05-08] MEDS ORDERED: LEVEMIR SC (10:02)
[2017-05-08] MEDS ORDERED: ULTRAM50 PO (10:02)
[2017-05-12] MEDS ORDERED: NORV5 PO (09:26)
[2017-05-12] MEDS ORDERED: COREG12 PO (09:27)
[2017-05-12] MEDS ORDERED: PROTONIX PO (09:29)
[2017-05-12] MEDS ORDERED: NORCO1 TA1 PO (09:30)
== END 2017-02-15 16:32 | disposition home or self-care (01) ==
LOC: ER 10:25
PROVIDERS: Physician Assistant
DX: R10.10 Upper abdominal pain, unspecified (principal); R11.2 Nausea with vomiting, unspecified; I10 Essential (primary) hypertension; E11.9 Type 2 diabetes mellitus without complications; Z86.19 Personal history of other infectious and parasitic diseases; Z88.5 Allergy status to narcotic agent; Z79.4 Long term (current) use of insulin; Z79.899 Other long term (current) drug therapy; Z90.49 Acquired absence of other specified parts of digestive tract
CPT/HCPCS: 74176; 80053; 81001; 83690; 85025; 85610; 85730; 96374; 96375; 96376; 99284; A9270-GY; C9113; J1170; J2405